=== PATIENT | male | born 1985 | race Caucasian/White ===

== ENCOUNTER 2017-07-15 12:15 | Emergency (ER) | payer OTHER ==
[~2017-07-15] VITALS: Ht 177.8 cm; Wt 95.3 kg
--- NOTE | 2017-07-15 12:20 | NUR ---
CHRISTIANO AND [employer] FROM A COURT HOUSE DT EPISODE OF CHEST PAIN AND ANXIETY. PATIENT RECEIVED [id number]. APPEARS IN NO APPARENT DISTRESS. RESPIRATION EVEN AND UNLABORED. SKIN IS WARM TO TOUCH AND NON DIAPHORETIC. AFEBRILE. VSS
--- NOTE | 2017-07-15 12:22 | NUR ---
[facility]ULO AT [facility]
--- NOTE | 2017-07-15 12:27 | NUR ---
EKG IN PROGRESS
[2017-07-15 12:33] VITALS: BP 128/80
== END 2017-07-15 12:42 | disposition home or self-care (01) ==
LOC: ER 12:18
DX: F41.9 Anxiety disorder, unspecified (principal); J45.909 Unspecified asthma, uncomplicated; F17.200 Nicotine dependence, unspecified, uncomplicated
CPT/HCPCS: 93005; 99283; A4606; Z7610